=== PATIENT | male | born 1965 | race Caucasian/White ===

== ENCOUNTER 2018-07-30 20:33 | Emergency (ER) | payer BC ==
[2018-07-30 20:45] VITALS: BP 139/88
[2018-07-30] MEDS ORDERED: Ciprofloxacin 0.3% OPTH.SOL* 2.5 ML BTL BOTH EYES ONE (21:16)
--- NOTE | 2018-07-30 21:30 | UC ---
Eye Complaint HPI - HPI Summary HPI Summary: Onset of left eye irritation a few days ago. States his eye felt a little bit swollen and has some discharge. This morning noticed some redness on the nasal aspect of his conjunctiva. His right eye is beginning to feel irritated as well. He denies any foreign body sensation. No pain with extraocular movements. No fever, no visual disturbances, no headache, no nausea, no photophobia. No recent illness or injury. Is traveling back home to [place] tomorrow where he does have an eye doctor. - History of Current Complaint Chief Complaint: UCEye Stated Complaint: EYE IRRITATION Time Seen by Provider: 07/30/18 20:49 Hx Obtained From: Patient Onset/Duration: Gradual Onset, Lasting Days, Still Present Timing: Constant Severity Initially: Mild Severity Currently: Mild Pain Intensity: 1 Pain Scale Used: 0-10 Numeric Location of Injury: Conjunctiva Character: Dull Aggravating Factor(s): Nothing Alleviating Factor(s): Nothing Associated Signs And Symptoms: Positive: Drainage (Clear) - Allergies/Home Medications Allergies/Adverse Reactions: Allergies Allergy/AdvReac Type Severity Reaction Status Date / Time No Known Allergies Allergy Verified 07/30/18 20:45 Home Medications: Home Medications NK [No Home Medications Reported] 07/30/18 [History Confirmed 07/30/18] PMH/Surg Hx/FS Hx/Imm Hx Previously Healthy: Yes - Surgical History Surgical History: Yes Surgery Procedure, Year, and Place: RIGHT BICEP REPAIR - Family History Known Family History: Positive: Non-Contributory - Social History Alcohol Use: None Substance Use Type: None Smoking Status (MU): Never Smoked Tobacco Review of Systems All Other Systems Reviewed And Are Negative: Yes Constitutional: Positive: Negative Eyes: Positive: Drainage, Eye Redness. Negative: Blurred Vision, Photophobia ENT: Positive: Negative Respiratory: Positive: Negative Cardiovascular: Positive: Negative Gastrointestinal: Positive: Negative Physical Exam Triage Information Reviewed: Yes Appearance: Well-Appearing, No Pain Distress, Well-Nourished Vital Signs: Initial Vital Signs Temp 97.6 F 07/30/18 20:41 Pulse 56 07/30/18 20:41 Resp 16 07/30/18 20:41 BP 139/88 07/30/18 20:41 Pulse Ox 98 07/30/18 20:41 Vital Signs Reviewed: Yes Eyes: Positive: Conjunctiva Inflamed - LEFT EYE NASAL ASPECT RED AND SWOLLEN. Negative: Discharge ENT: Positive: Hearing grossly normal Neck: Positive: Supple Respiratory: Positive: No respiratory distress, No accessory muscle use Cardiovascular: Positive: Pulses Normal Abdomen Description: Positive: Soft Musculoskeletal: Positive: No Edema Neurological: Positive: Alert Psychological: Positive: Age Appropriate Behavior Skin: Negative: Rashes Eye Complaint Course/Dx - Differential Dx/Diagnosis Provider Diagnosis: Chemosis of left conjunctiva Discharge - Sign-Out/Discharge Documenting (check all that apply): Patient Departure All imaging exams completed and their final reports reviewed: No Studies - Discharge Plan Condition: Stable Disposition: HOME Referrals: No Primary Care Phys,NOPCP [Primary Care Provider] - Additional Instructions: Chemosis Chemosis is a collection of serous fluid within the substance of the conjunctiva and is a nonspecific sign of conjunctival irritation. Chemosis can be seen in a wide range of conditions affecting the eye and orbit, including trauma, allergic reaction, inflammation, low protein states, and infection. USE THE ANTIBIOTIC EYE DROPS AND CALL YOUR EYE DOCTOR FIRST THING IN THE MORNING. GO TO THE ER WITHOUT FAIL IF YOU DEVELOP EYE PAIN, VISUAL DISTURBANCES , FEVER, NAUSEA, HEADACHE , SENSITIVITY TO LIGHT OR ANY OTHER CONCERNING SYMPTOMS. - Billing Disposition and Condition Condition: STABLE Disposition: Home
== END 2018-07-30 21:28 | disposition home or self-care (01) ==
LOC: UCEAST 20:33
DX: H11.422 Conjunctival edema, left eye (principal)
CPT/HCPCS: 99203; A9270-GY; G0463